=== PATIENT | male | born 1985 | race Caucasian/White ===

== ENCOUNTER 2018-09-16 11:38 | Emergency (ER) | payer MEDICAID, OTHER ==
[~2018-09-16] VITALS: Ht 177.8 cm; Wt 59.0 kg
[2018-09-16 12:38] VITALS: BP 122/77
== END 2018-09-16 13:48 | disposition home or self-care (01) ==
LOC: ER 11:38
DX: J20.9 Acute bronchitis, unspecified (principal)
CPT/HCPCS: 71046; 81002

== ENCOUNTER 2018-12-23 12:15 | Emergency (ER) | payer MEDICAID ==
[~2018-12-23] VITALS: Ht 177.8 cm; Wt 54.4 kg
[2018-12-23 12:27] VITALS: BP 127/89
[2018-12-23] MEDS ORDERED: cefTRIAXone SOD 1,000 MG VL IM ONE (14:45)
== END 2018-12-23 15:08 | disposition home or self-care (01) ==
LOC: ER 12:18
DX: J02.9 Acute pharyngitis, unspecified (principal)

== ENCOUNTER 2020-06-13 04:21 | Emergency (ER) | payer MEDICAID ==
[~2020-06-13] VITALS: Ht 175.3 cm; Wt 63.5 kg
[2020-06-13 06:38] LABS: Basophils # (auto) 0 10 ^3/uL (0-0.2); Basophils % (auto) 0.3 % (0.0-2.0); Eosinophils # (auto) 0.1 10 ^3/uL (0-0.8); Eosinophils % (auto) 0.9 % (0.0-7.0); Hematocrit 41.9 % (41.0-53.0); Hemoglobin 14.3 g/dL (13.5-17.5); Lymphocytes # (auto) 0.8 10 ^3/uL (0.4-5.4); Lymphocytes % (auto) 6.4 % (10.0-50.0); Mean Corpuscular Hemoglobin 29.2 pg (28.0-32.0); Mean Corpuscular Hgb Conc. 34.2 g/dL (32.0-36.0); Mean Corpuscular Volume 85.2 fL (80.0-100.0); Monocytes # (auto) 1.4 10 ^3/uL (0-1.3); Monocytes % (auto) 11.3 % (0.0-12.0); Neutrophils # (auto) 9.7 10 ^3/uL (1.6-8.6); Neutrophils % (auto) 81.1 % (37.0-80.0); Platelet Count (auto) 252 10^3/uL (140-450); Red Blood Cells 4.91 10^6/uL (4.5-5.90); Red Cell Distribution Width 14.5 % (11.8-14.3)
[2020-06-13 06:44] LABS: Alanine Aminotransferase 24 U/L (16-61); Albumin 3.9 g/dL (3.4-5.0); Anion Gap 9 (5-15); Aspartate Aminotransferase 12 U/L (15-37); BUN/Creatinine Ratio 7.4; Blood Urea Nitrogen 6 mg/dL (7-18); Calcium 9.4 mg/dL (8.5-10.1); Carbon Dioxide 24 mmol/L (21-32); Chloride 103 mmol/L (98-107); GFR African American 140 mL/min; GFR Non-African American 116 mL/min; Glucose 113 mg/dL (74-106); Potassium 3.8 mmol/L (3.5-5.1); Sodium 136 mmol/L (136-145)
[2020-06-13] MEDS ORDERED: ASPirin 81 mg TAB PO ONE (06:45)
[2020-06-13 06:49] LABS: Alkaline Phosphatase 109 U/L (45-117); Bilirubin, Total 1.6 mg/dL (0.2-1.0); INR 1.03 (0.9-1.15)
[2020-06-13 09:38] VITALS: BP 124/82
== END 2020-06-13 09:44 | disposition home or self-care (01) ==
LOC: EDBD 04:21 → ER 04:21
DX: R07.89 Other chest pain (principal); J18.9 Pneumonia, unspecified organism; F41.9 Anxiety disorder, unspecified; D72.829 Elevated white blood cell count, unspecified; F17.210 Nicotine dependence, cigarettes, uncomplicated; F12.10 Cannabis abuse, uncomplicated
CPT/HCPCS: 36415; 71045; 80053; 83880; 84484; 85025; 85610; 85730; 93005